=== PATIENT | female | born 1960 | race Caucasian/White ===

== ENCOUNTER 2018-09-24 19:17 | Emergency (ER) | payer MEDICARE, MEDICAID ==
[~2018-09-24] VITALS: Ht 165.1 cm; Wt 66.0 kg
[2018-09-24] MEDS ORDERED: AZITHROMYCIN 500 MG in DEXT 5% WATER 250 ML IV SCH (22:00)
[2018-09-24] MEDS ORDERED: METHYLPREDNISOLONE SOD SUCC 125 MG/2 ML VIAL IV ONE (22:00)
[2018-09-24] MEDS ORDERED: BUDESONIDE 0.5MG/2ML NEB HHN ONE (22:00)
[2018-09-24] MEDS ORDERED: ALBUTEROL (0.083%) 2.5MG/3ML NEB HHN ONE (22:00)
[2018-09-24] MEDS ORDERED: IPRATROPIUM BROMIDE (0.02%) 0.5MG/2.5ML NEB HHN ONE (22:00)
[2018-09-24 22:19] LABS: BASOPHILS % 0.4 % (0.0-2.0); EOSINOPHILS % 0.1 % (0.0-5.0); HEMOGLOBIN. 13.7 g/dL (12.0-16.0); LYMPHOCYTES % 8.3 % (20.0-50.0); MEAN CORPUSCULAR HEMOGLOBIN 33.8 pg (28.0-32.0); MEAN CORPUSCULAR VOLUME 103.5 fL (81.0-99.0); MEAN PLATELET VOLUME 7.2 fl (7.4-10.4); MONOCYTES % 2.4 % (2.0-8.0); NEUTROPHILS % 88.8 % (40.0-76.0); PLATELET 358 x1000/uL (130-400); RED BLOOD CELL COUNT 4.06 mill/uL (4.2-5.4); RED CELL DISTRIBUTION WIDTH 14.8 % (11.6-14.6)
[2018-09-24 22:21] LABS: CHLORIDE 101 mEq/L (98-107)
[2018-09-25] MEDS ORDERED: ALBUTEROL (0.083%) 2.5MG/3ML NEB HHN ONE (01:30)
[2018-09-25 04:30] VITALS: BP 100/54
== END 2018-09-25 05:46 | disposition home or self-care (01) ==
LOC: ER 19:17
DX: J44.1 Chronic obstructive pulmonary disease with (acute) exacerbation (principal)
CPT/HCPCS: 36415; 71045; 80053; 83605; 83880; 84484; 85025; 93005; 94640; 96365; 96375; 99284; J0456; J2930; J7060; J7611; J7626

== ENCOUNTER 2020-09-18 01:27 | Emergency (ER) | payer MEDICARE, MEDICAID ==
[~2020-09-18] VITALS: Ht 157.5 cm; Wt 59.0 kg
[~2020-09-18 01:27] MED LIST: ASPI-1497 PO; LISI40TA13 PO; METO-411 PO; MONT10TA21 PO
[2020-09-18] MEDS ORDERED: ASPIRIN 81MG TABLET PO ONE (02:00)
[2020-09-18 02:16] LABS: BASOPHILS % 0.8 % (0.0-2.0); HEMATOCRIT. 41.4 % (36.0-48.0); HEMOGLOBIN. 13.8 g/dL (12.0-16.0); MEAN CORPUSCULAR HEMOGLOBIN 33.2 pg (28.0-32.0); MEAN CORPUSCULAR VOLUME 99.4 fL (81.0-99.0); MEAN PLATELET VOLUME 6.9 fl (7.4-10.4); MONOCYTES % 6.1 % (2.0-8.0); NEUTROPHILS % 58.1 % (40.0-76.0); PLATELET 242 x1000/uL (130-400); RED BLOOD CELL COUNT 4.16 mill/uL (4.2-5.4); RED CELL DISTRIBUTION WIDTH 14.3 % (11.6-14.6)
[2020-09-18 02:20] LABS: CHLORIDE 104 mEq/L (98-107)
[2020-09-18 03:55] VITALS: BP 129/78
== END 2020-09-18 04:50 | disposition home or self-care (01) ==
LOC: ER 01:27
DX: R07.89 Other chest pain (principal); F41.9 Anxiety disorder, unspecified; F43.0 Acute stress reaction; F17.200 Nicotine dependence, unspecified, uncomplicated; J44.1 Chronic obstructive pulmonary disease with (acute) exacerbation; I10 Essential (primary) hypertension; Z86.73 Personal history of transient ischemic attack (TIA), and cerebral infarction without residual deficits; Z59.0 Homelessness
CPT/HCPCS: 36415; 71045; 80053; 83880; 84484; 85025; 93005; 99283; 99284

== ENCOUNTER 2022-02-05 19:54 | Inpatient (IN) | payer MEDICARE, MEDICAID ==
[~2022-02-05] VITALS: Ht 152.4 cm; Wt 83.9 kg
[~2022-02-05 19:54] MED LIST changes: +LEVO500T90 MT; +MED4 MT; +METH10OR PO; +PRAV40TA58 MT; +TEMA30CA MT
[2022-02-05] MEDS ORDERED: ASPIRIN 325MG EC TABLET PO ONE (21:45)
[2022-02-05] MEDS ORDERED: ALBUTEROL (0.083%) 2.5MG/3ML NEB HHN ONE (21:45)
[2022-02-05 23:45] LABS: BASOPHILS % 0.7 % (0.0-2.0); EOSINOPHILS % 0.5 % (0.0-5.0); HEMATOCRIT. 47.7 % (36.0-48.0); HEMOGLOBIN. 15.4 g/dL (12.0-16.0); LYMPHOCYTES % 20.4 % (20.0-50.0); MEAN CORPUSCULAR HEMOGLOBIN 33.2 pg (28.0-32.0); MEAN CORPUSCULAR VOLUME 102.5 fL (81.0-99.0); MEAN PLATELET VOLUME 7.2 fl (7.4-10.4); MONOCYTES % 6.2 % (2.0-8.0); NEUTROPHILS % 72.2 % (40.0-76.0); PLATELET 190 x1000/uL (130-400); RED BLOOD CELL COUNT 4.65 mill/uL (4.2-5.4); RED CELL DISTRIBUTION WIDTH 16.4 % (11.6-14.6)
[2022-02-05 23:51] LABS: CHLORIDE 98 mEq/L (98-107)
[2022-02-06] LABS: INR 1.1; PROTHROMBIN TIME 11.4 sec (9.6-11.0)
[2022-02-06] MEDS ORDERED: ENOXAPARIN 80MG/0.8ML SYR SUBCUT NR (00:30)
[2022-02-06] MEDS ORDERED: CEFTRIAXONE 1 G PREMIX 50 ML IV ONE (01:00)
[2022-02-06] MEDS: AZITHROMYCIN 500 MG in DEXT 5% WATER 250 ML IV SCH (01:51)
[2022-02-06] MEDS ORDERED: ACETAMINOPHEN 325MG TABLET PO PRN (16:15)
[2022-02-06] MEDS ORDERED: IPRATROPIUM/ALBUTEROL 0.5-3(2.5)MG/3ML NEB HHN SCH (16:15)
[2022-02-06] MEDS ORDERED: LORAZEPAM 0.5MG TABLET PO PRN (16:15)
[2022-02-06] MEDS ORDERED: ONDANSETRON HCL 4MG/2ML INJ IV PRN (16:15)
[2022-02-06] MEDS ORDERED: METOPROLOL TARTRATE 50MG TABLET PO NR (16:15)
[2022-02-06] MEDS: ASPIRIN 81MG EC TABLET PO SCH (16:45)
[2022-02-06] MEDS: ENOXAPARIN 40MG/0.4ML SYR SUBCUT SCH (17:00)
[2022-02-06 19:03] VITALS: BP 118/61
[2022-02-06 20:00] VITALS: BP 116/66
[2022-02-06] MEDS ORDERED: ATORVASTATIN CALCIUM 40MG TABLET PO SCH (21:00)
[2022-02-06] MEDS ORDERED: SODIUM CHLORIDE 0.9% 1,000 ML IV SCH (22:45)
[2022-02-06] MEDS ORDERED: ZOLPIDEM TARTRATE 5MG TABLET PO PRN (22:45)
[2022-02-07 01:56] LABS: CREATINE KINASE 21 IU/L (26-192); CREATINE KINASE MB FRACTION < 1.0 ng/mL (0.5-3.6)
[2022-02-07] MEDS: AZITHROMYCIN 500 MG in DEXT 5% WATER 250 ML IV SCH (02:25)
[2022-02-07 06:02] LABS: BASOPHILS % 0.3 % (0.0-2.0); EOSINOPHILS % 0.8 % (0.0-5.0); HEMATOCRIT. 46.7 % (36.0-48.0); HEMOGLOBIN. 15.2 g/dL (12.0-16.0); LYMPHOCYTES % 22.6 % (20.0-50.0); MEAN CORPUSCULAR HEMOGLOBIN 32.9 pg (28.0-32.0); MEAN CORPUSCULAR VOLUME 101.1 fL (81.0-99.0); MEAN PLATELET VOLUME 7.5 fl (7.4-10.4); MONOCYTES % 8.3 % (2.0-8.0); PLATELET 210 x1000/uL (130-400); RED BLOOD CELL COUNT 4.62 mill/uL (4.2-5.4); RED CELL DISTRIBUTION WIDTH 16.2 % (11.6-14.6)
[2022-02-07 06:56] LABS: CHLORIDE 97 mEq/L (98-107)
[2022-02-07 07:18] LABS: CREATINE KINASE 17 IU/L (26-192); CREATINE KINASE MB FRACTION < 1.0 ng/mL (0.5-3.6)
[2022-02-07 08:03] VITALS: BP 103/67
[2022-02-07] MEDS: ASPIRIN 81MG EC TABLET PO SCH (08:05)
[2022-02-07] MEDS ORDERED: MONTELUKAST SODIUM 10MG TABLET PO SCH (09:00)
[2022-02-07] MEDS ORDERED: LISINOPRIL 40MG TABLET PO SCH (09:00)
[2022-02-07] MEDS ORDERED: REGADENOSON 0.4 MG/5 ML IV SCH (09:15)
[2022-02-07 12:00] VITALS: BP 128/83
[2022-02-07 16:00] VITALS: BP 112/71
[2022-02-07] MEDS: ENOXAPARIN 40MG/0.4ML SYR SUBCUT SCH (16:24)
== END 2022-02-07 19:43 | disposition home or self-care (01) | DRG 206 ==
LOC: ER 19:54 → 8WST 02-06 00:27
PROVIDERS: ADMIT Internal Medicine; ATTEND Internal Medicine
PROC: 4A02XM4 Measurement of Cardiac Total Activity, External Approach (ICD-10-PCS; principal; 2022-02-07)
PROC: 3E033HZ Introduction of Radioactive Substance into Peripheral Vein, Percutaneous Approach (ICD-10-PCS; 2022-02-07)
DX: M94.0 Chondrocostal junction syndrome [Tietze] (principal); J96.10 Chronic respiratory failure, unspecified whether with hypoxia or hypercapnia; F11.90 Opioid use, unspecified, uncomplicated; J44.9 Chronic obstructive pulmonary disease, unspecified; E78.5 Hyperlipidemia, unspecified; I10 Essential (primary) hypertension; F17.200 Nicotine dependence, unspecified, uncomplicated; Z20.822 Contact with and (suspected) exposure to COVID-19; Z79.899 Other long term (current) drug therapy; Z82.49 Family history of ischemic heart disease and other diseases of the circulatory system; Z83.3 Family history of diabetes mellitus; I51.89 Other ill-defined heart diseases
CPT/HCPCS: 36415; 71045; 78452; 80048; 80053; 82550; 82553; 84484; 85025; 86850; 86900; 87426; 93005; 93017; 94640; 96365; 96368; 96372; 99284; A9500; C9803; J0456; J0696; J1650; J2785; J7030; J7060

== ENCOUNTER 2022-02-27 11:39 | Emergency (ER) | payer MEDICAID, MEDICARE ==
[~2022-02-27] VITALS: Ht 157.5 cm; Wt 96.0 kg
[2022-02-27 15:32] LABS: BASOPHILS % 0.4 % (0.0-2.0); EOSINOPHILS % 0.2 % (0.0-5.0); HEMOGLOBIN. 15.4 g/dL (12.0-16.0); MEAN CORPUSCULAR HEMOGLOBIN 32.8 pg (28.0-32.0); MEAN CORPUSCULAR VOLUME 102.6 fL (81.0-99.0); MEAN PLATELET VOLUME 7.6 fl (7.4-10.4); MONOCYTES % 7.2 % (2.0-8.0); NEUTROPHILS % 69.2 % (40.0-76.0); PLATELET 178 x1000/uL (130-400); RED BLOOD CELL COUNT 4.68 mill/uL (4.2-5.4)
[2022-02-27 15:57] LABS: CHLORIDE 104 mEq/L (98-107)
[2022-02-27 21:38] VITALS: BP 125/75
== END 2022-02-27 19:50 | disposition home or self-care (01) ==
LOC: ER 11:39
DX: R20.0 Anesthesia of skin (principal); J45.909 Unspecified asthma, uncomplicated; J44.9 Chronic obstructive pulmonary disease, unspecified; F17.210 Nicotine dependence, cigarettes, uncomplicated
CPT/HCPCS: 36415; 72148; 80048; 83735; 85025; 99284

== ENCOUNTER 2022-03-14 18:41 | Inpatient (IN) | payer MEDICARE, MEDICAID ==
[~2022-03-14] VITALS: Ht 152.4 cm; Wt 93.1 kg
[2022-03-14] MEDS ORDERED: MORPHINE SULFATE 4 MG/ML CPJ (NOT FOR IM USE) IV ONE (19:15)
[2022-03-14 19:35] LABS: HEMATOCRIT. 48.7 % (36.0-48.0); HEMOGLOBIN. 15.6 g/dL (12.0-16.0); MEAN CORPUSCULAR HEMOGLOBIN 32.6 pg (28.0-32.0); MEAN CORPUSCULAR VOLUME 101.6 fL (81.0-99.0); MEAN PLATELET VOLUME 7.1 fl (7.4-10.4); PLATELET 244 x1000/uL (130-400); RED BLOOD CELL COUNT 4.79 mill/uL (4.2-5.4); RED CELL DISTRIBUTION WIDTH 16.9 % (11.6-14.6)
[2022-03-14 19:41] LABS: CHLORIDE 101 mEq/L (98-107)
[2022-03-14 20:25] LABS: PLATELET ESTIMATE NORMAL
[2022-03-14] MEDS ORDERED: ACETAMINOPHEN 325MG TABLET PO ONE (21:00)
[2022-03-14] MEDS ORDERED: CEFTRIAXONE 1 G PREMIX 50 ML IV ONE (21:00)
[2022-03-14] MEDS ORDERED: MORPHINE SULFATE 4 MG/ML CPJ (NOT FOR IM USE) IV NR (21:15)
[2022-03-14] MEDS ORDERED: LISINOPRIL 5MG TABLET PO NR (22:00)
[2022-03-14] MEDS ORDERED: ASPIRIN 81MG TABLET PO NR (22:00)
[2022-03-14] MEDS ORDERED: METOPROLOL TARTRATE 25MG TABLET PO NR (22:00)
[2022-03-14] MEDS ORDERED: NITROGLYCERIN 0.4MG TABLET SL SL NR (22:45)
[2022-03-14] MEDS ORDERED: ISOSORBIDE DINITRATE 10MG TABLET PO SCH (23:00)
[2022-03-14 23:58] LABS: CLARITY URINE CLOUDY (CLEAR); COLOR URINE YELLOW (YELLOW); KETONES URINE NEGATIVE (NEGATIVE); LEUKOCYTE ESTERASE URINE NEGATIVE (NEGATIVE); NITRITE URINE NEGATIVE (NEGATIVE); OCCULT BLOOD URINE NEGATIVE (NEGATIVE); PH URINE 5.5 (4.5-8.0); PROTEIN URINE 1+ (NEGATIVE); SPECIFIC GRAVITY URINE 1.028 (1.005-1.030)
[2022-03-15 00:06] LABS: INR 1.1; PARTIAL THROMBOPLASTIN TIME 26.3 sec (23.4-31.0); PROTHROMBIN TIME 11.3 sec (9.6-11.0)
[2022-03-15] MEDS ORDERED: HEPARIN 60 UNITS/KG BOLUS IV NR (01:00)
[2022-03-15] MEDS: HEPARIN 25,000 UNITS PREMIX 250 ML IV SCH ×2 (01:44→18:43)
[2022-03-15] MEDS ORDERED: FUROSEMIDE 40MG/4ML VIAL IVP NR (07:15)
[2022-03-15] MEDS ORDERED: HEPARIN BOLUS PRN aPTT <30 IV (07:30)
[2022-03-15] MEDS ORDERED: HEPARIN BOLUS PRN aPTT 30-44 IV (07:30)
[2022-03-15 08:50] VITALS: BP 147/77
[2022-03-15] MEDS: METOPROLOL TARTRATE 25MG TABLET PO SCH ×2 (09:42→20:36)
[2022-03-15] MEDS: LISINOPRIL 10MG TABLET PO SCH (09:42)
[2022-03-15] MEDS: ASPIRIN 81MG TABLET PO SCH (09:42)
[2022-03-15] MEDS: ISOSORBIDE DINITRATE 20MG TABLET PO SCH ×2 (09:42→17:00)
[2022-03-15] MEDS ORDERED: HYDRALAZINE 20MG/ML VIAL IV PRN (10:45)
[2022-03-15] MEDS ORDERED: ACETAMINOPHEN 325MG TABLET PO PRN (11:45)
[2022-03-15] MEDS ORDERED: ONDANSETRON HCL 4MG/2ML INJ IV PRN (11:45)
[2022-03-15 12:00] VITALS: BP 129/76
[2022-03-15] MEDS ORDERED: IPRATROPIUM/ALBUTEROL 0.5-3(2.5)MG/3ML NEB HHN SCH (12:00)
[2022-03-15] MEDS: LEVOFLOXACIN 500MG PREMIX 100 ML IV SCH (14:02)
[2022-03-15 16:00] VITALS: BP 104/54
[2022-03-15 16:25] LABS: CREATINE KINASE 186 IU/L (26-192)
[2022-03-15] MEDS ORDERED: *PATIENT'S OWN MEDICATION STORAGE XX SCH (18:15)
[2022-03-15] MEDS: IPRATROPIUM/ALBUTEROL 0.5-3(2.5)MG/3ML NEB HHN SCH ×2 (18:17→21:38)
[2022-03-15] MEDS: FUROSEMIDE 40MG/4ML VIAL IVP SCH (18:20)
[2022-03-15 20:00] VITALS: BP 101/68
[2022-03-15] MEDS ORDERED: IBUP-2030 PO (20:00)
[2022-03-15] MEDS ORDERED: GABA-529 PO (20:00)
[2022-03-15] MEDS ORDERED: IPRA4AER INH (20:00)
[2022-03-15] MEDS ORDERED: FLUT1AER4 IH (20:00)
[2022-03-15] MEDS ORDERED: ALBU6.7H15 INH (20:00)
[2022-03-15] MEDS ORDERED: CYCL10TA21 PO (20:00)
[2022-03-15] MEDS: METHADONE HCL PO SCH (20:38)
[2022-03-15] MEDS: ATORVASTATIN CALCIUM 40MG TABLET PO SCH (20:44)
[2022-03-15] MEDS ORDERED: ATORVASTATIN CALCIUM 40MG TABLET PO SCH (21:00)
[2022-03-15] MEDS: BUDESONIDE 0.5MG/2ML NEB HHN SCH (21:38)
[2022-03-15 23:30] LABS: CREATINE KINASE 116 IU/L (26-192)
[2022-03-16] VITALS: BP 134/71
[2022-03-16] MEDS: IPRATROPIUM/ALBUTEROL 0.5-3(2.5)MG/3ML NEB HHN SCH ×4 (01:54→21:50)
[2022-03-16 04:00] VITALS: BP 131/76
[2022-03-16] MEDS ORDERED: NON FORMULARY PATIENT HOME MED PO SCH (07:00)
[2022-03-16] MEDS: BUDESONIDE 0.5MG/2ML NEB HHN SCH ×2 (07:32→21:50)
[2022-03-16 07:33] LABS: BASOPHILS % 0.3 % (0.0-2.0); EOSINOPHILS % 0.2 % (0.0-5.0); HEMATOCRIT. 45.5 % (36.0-48.0); HEMOGLOBIN. 14.7 g/dL (12.0-16.0); LYMPHOCYTES % 11.7 % (20.0-50.0); MEAN CORPUSCULAR HEMOGLOBIN 32.9 pg (28.0-32.0); MEAN CORPUSCULAR VOLUME 101.4 fL (81.0-99.0); MEAN PLATELET VOLUME 7.7 fl (7.4-10.4); MONOCYTES % 6.2 % (2.0-8.0); NEUTROPHILS % 81.6 % (40.0-76.0); PLATELET 239 x1000/uL (130-400); RED BLOOD CELL COUNT 4.48 mill/uL (4.2-5.4); RED CELL DISTRIBUTION WIDTH 16.3 % (11.6-14.6)
[2022-03-16 08:00] VITALS: BP 147/77
[2022-03-16] MEDS: HEPARIN 25,000 UNITS PREMIX 250 ML IV SCH ×4 (08:36→23:29)
[2022-03-16 08:41] LABS: CHLORIDE 95 mEq/L (98-107)
[2022-03-16 08:46] LABS: INR 1.1; PROTHROMBIN TIME 11.8 sec (9.6-11.0)
[2022-03-16] MEDS: METHADONE HCL PO SCH (08:52)
[2022-03-16 08:56] LABS: PARTIAL THROMBOPLASTIN TIME 27.6 sec (23.4-31.0)
[2022-03-16] MEDS: METOPROLOL TARTRATE 25MG TABLET PO SCH ×2 (09:00→20:35)
[2022-03-16] MEDS: ASPIRIN 81MG TABLET PO SCH (09:00)
[2022-03-16] MEDS: LISINOPRIL 10MG TABLET PO SCH (09:00)
[2022-03-16] MEDS: FUROSEMIDE 40MG/4ML VIAL IVP SCH ×2 (09:00→16:15)
[2022-03-16] MEDS: ISOSORBIDE DINITRATE 20MG TABLET PO SCH ×2 (09:19→16:17)
[2022-03-16] MEDS ORDERED: POTASSIUM CHLORIDE 20MEQ TABLET SR PO NR (10:50)
[2022-03-16 12:00] VITALS: BP 115/79
[2022-03-16] MEDS: LEVOFLOXACIN 500MG PREMIX 100 ML IV SCH (13:09)
[2022-03-16 16:01] VITALS: BP 133/82
[2022-03-16] MEDS: TEMAZEPAM 15MG CAPSULE PO PRN (20:39)
[2022-03-16] MEDS: ATORVASTATIN CALCIUM 40MG TABLET PO SCH (21:00)
[2022-03-16 22:55] VITALS: BP 124/59
[2022-03-17] VITALS (12 sets, daily range): BP systolic 95–140; BP diastolic 43–90
[2022-03-17] MEDS: IPRATROPIUM/ALBUTEROL 0.5-3(2.5)MG/3ML NEB HHN SCH ×4 (01:00→21:19)
[2022-03-17 07:15] LABS: BASOPHILS % 0.9 % (0.0-2.0); EOSINOPHILS % 1.3 % (0.0-5.0); HEMATOCRIT. 47.5 % (36.0-48.0); HEMOGLOBIN. 15.7 g/dL (12.0-16.0); LYMPHOCYTES % 20.4 % (20.0-50.0); MEAN CORPUSCULAR HEMOGLOBIN 33.1 pg (28.0-32.0); MEAN PLATELET VOLUME 7.3 fl (7.4-10.4); MONOCYTES % 6.6 % (2.0-8.0); NEUTROPHILS % 70.8 % (40.0-76.0); PLATELET 287 x1000/uL (130-400); RED BLOOD CELL COUNT 4.75 mill/uL (4.2-5.4)
[2022-03-17] MEDS ORDERED: NITROGLYCERIN 50MCG/ML 10ML VIAL (CATH LAB) IV ONE (08:00)
[2022-03-17] MEDS ORDERED: NICARDIPINE 100MCG/ML 10ML VIAL (CATH LAB) IV ONE (08:00)
[2022-03-17 08:01] LABS: CHLORIDE 92 mEq/L (98-107)
[2022-03-17] MEDS: BUDESONIDE 0.5MG/2ML NEB HHN SCH ×2 (08:13→21:19)
[2022-03-17] MEDS: FUROSEMIDE 40MG/4ML VIAL IVP SCH (08:22)
[2022-03-17] MEDS: ASPIRIN 81MG TABLET PO SCH (09:00)
[2022-03-17] MEDS: LISINOPRIL 10MG TABLET PO SCH (09:00)
[2022-03-17] MEDS: ISOSORBIDE DINITRATE 20MG TABLET PO SCH ×2 (09:00→18:07)
[2022-03-17] MEDS: METOPROLOL TARTRATE 25MG TABLET PO SCH ×2 (09:00→20:40)
[2022-03-17] MEDS ORDERED: IODIXANOL 320MG/ML 100 ML BOTTLE IV ONE ×3 (09:28→12:08)
[2022-03-17] MEDS ORDERED: LIDOCAINE HCL/PF 1% 10 MG/ML 5ML VIAL ONE ×2 (09:50→10:27)
[2022-03-17] MEDS ORDERED: MIDAZOLAM HCL 2 MG/2 ML VIAL ONE ×2 (09:51→11:45)
[2022-03-17] MEDS ORDERED: FENTANYL CITRATE/PF 50MCG/ML 2ML VIAL ONE ×2 (09:51→11:45)
[2022-03-17] MEDS ORDERED: HEPARIN 1000 UNITS/ML 10ML ONE (10:23)
[2022-03-17] MEDS ORDERED: HEPARIN SODIUM 1,000 UNIT/1ML VIAL IV ONE ×2 (11:05→12:12)
[2022-03-17] MEDS ORDERED: TICAGRELOR 90 MG TABLET PO NR (12:30)
[2022-03-17] MEDS ORDERED: ASPIRIN 325MG TABLET ONE (12:32)
[2022-03-17] MEDS ORDERED: ACETAMINOPHEN 325MG TABLET PO PRN (12:45)
[2022-03-17] MEDS ORDERED: MORPHINE SULFATE 2 MG/ML CPJ (NOT FOR IM USE) IV PRN ×2 (12:45)
[2022-03-17] MEDS ORDERED: ONDANSETRON HCL 4MG/2ML INJ IV PRN (12:45)
[2022-03-17] MEDS ORDERED: NITROGLYCERIN 50MG PREMIX 250 ML IV PRN (12:45)
[2022-03-17] MEDS ORDERED: ATROPINE SULFATE 1MG/10ML SYR IV PRN (12:45)
[2022-03-17] MEDS ORDERED: NALOXONE HCL 0.4MG/ML VIAL IV PRN (13:00)
[2022-03-17] MEDS: METHADONE HCL PO SCH (14:58)
[2022-03-17] MEDS: LEVOFLOXACIN 500MG PREMIX 100 ML IV SCH (14:58)
[2022-03-17] MEDS: POTASSIUM CHLORIDE 20MEQ TABLET SR PO SCH (18:06)
[2022-03-17] MEDS: ATORVASTATIN CALCIUM 40MG TABLET PO SCH (20:40)
[2022-03-17] MEDS: TEMAZEPAM 15MG CAPSULE PO PRN (23:56)
[2022-03-18] VITALS (18 sets, daily range): BP systolic 86–123; BP diastolic 29–79
[2022-03-18] MEDS: IPRATROPIUM/ALBUTEROL 0.5-3(2.5)MG/3ML NEB HHN SCH ×3 (01:23→14:19)
[2022-03-18 06:18] LABS: BASOPHILS % 0.4 % (0.0-2.0); HEMATOCRIT. 48.5 % (36.0-48.0); HEMOGLOBIN. 15.7 g/dL (12.0-16.0); LYMPHOCYTES % 16.3 % (20.0-50.0); MEAN CORPUSCULAR HEMOGLOBIN 32.9 pg (28.0-32.0); MEAN CORPUSCULAR VOLUME 101.5 fL (81.0-99.0); MONOCYTES % 7.6 % (2.0-8.0); NEUTROPHILS % 73.7 % (40.0-76.0); PLATELET 289 x1000/uL (130-400); RED BLOOD CELL COUNT 4.78 mill/uL (4.2-5.4); RED CELL DISTRIBUTION WIDTH 16.9 % (11.6-14.6)
[2022-03-18 06:50] LABS: CHLORIDE 96 mEq/L (98-107)
[2022-03-18] MEDS: BUDESONIDE 0.5MG/2ML NEB HHN SCH (07:50)
[2022-03-18] MEDS: ASPIRIN 81MG TABLET PO SCH (08:14)
[2022-03-18] MEDS: METHADONE HCL PO SCH (08:14)
[2022-03-18] MEDS: LISINOPRIL 10MG TABLET PO SCH (08:15)
[2022-03-18] MEDS: POTASSIUM CHLORIDE 20MEQ TABLET SR PO SCH ×2 (08:15→17:18)
[2022-03-18] MEDS: METOPROLOL TARTRATE 25MG TABLET PO SCH (08:16)
[2022-03-18] MEDS: ISOSORBIDE DINITRATE 20MG TABLET PO SCH ×2 (08:16→17:22)
[2022-03-18] MEDS ORDERED: CLOPIDOGREL 75MG TABLET PO SCH (09:00)
[2022-03-18] MEDS ORDERED: FUROSEMIDE 40MG/4ML VIAL IVP SCH (09:00)
[2022-03-18] MEDS ORDERED: LIDOCAINE 5% PATCH TOP SCH (13:00)
[2022-03-18] MEDS: LEVOFLOXACIN 500MG PREMIX 100 ML IV SCH (13:25)
[2022-03-18] MEDS ORDERED: ISOS20TA8 PO (15:48)
[2022-03-18] MEDS ORDERED: LISI10TA26 PO (15:48)
[2022-03-18] MEDS ORDERED: METO25TA6 PO (15:48)
[2022-03-18] MEDS ORDERED: HYDR25TA MT (15:48)
[2022-03-18] MEDS ORDERED: P20 MT (15:48)
[2022-03-18] MEDS ORDERED: LIP40 PO (15:48)
[2022-03-18] MEDS ORDERED: CLOP75TA15 PO (15:48)
== END 2022-03-18 19:06 | disposition home health service (06) | DRG 246 ==
LOC: ER 18:41 → MICUSO 23:46 → 8WST 03-15 10:11 → 3WST 03-17 13:39
PROVIDERS: ADMIT Internal Medicine; ATTEND Internal Medicine
PROC: 027034Z Dilation of Coronary Artery, One Artery with Drug-eluting Intraluminal Device, Percutaneous Approach (ICD-10-PCS; principal; 2022-03-17)
PROC: 02C03Z7 Extirpation of Matter from Coronary Artery, One Artery, Orbital Atherectomy Technique, Percutaneous Approach (ICD-10-PCS; 2022-03-17)
PROC: B241ZZ3 Ultrasonography of Multiple Coronary Arteries, Intravascular (ICD-10-PCS; 2022-03-17)
PROC: B211YZZ Fluoroscopy of Multiple Coronary Arteries using Other Contrast (ICD-10-PCS; 2022-03-17)
PROC: B215YZZ Fluoroscopy of Left Heart using Other Contrast (ICD-10-PCS; 2022-03-17)
DX: I21.4 Non-ST elevation (NSTEMI) myocardial infarction (principal); J96.20 Acute and chronic respiratory failure, unspecified whether with hypoxia or hypercapnia; J44.1 Chronic obstructive pulmonary disease with (acute) exacerbation; E44.1 Mild protein-calorie malnutrition; Z68.41 Body mass index [BMI] 40.0-44.9, adult; I11.0 Hypertensive heart disease with heart failure; I50.9 Heart failure, unspecified; E66.9 Obesity, unspecified; D72.829 Elevated white blood cell count, unspecified; E78.5 Hyperlipidemia, unspecified; F11.90 Opioid use, unspecified, uncomplicated; F17.200 Nicotine dependence, unspecified, uncomplicated; Z99.81 Dependence on supplemental oxygen
CPT/HCPCS: 36415; 71045; 76775; 80048; 80053; 81003; 82550; 83735; 83880; 84484; 85025; 86850; 86900; 87426; 92933; 92978; 93005; 93306; 93458; 94640; 94664; 99291; C1725; C1753; C1760; C1769; C1874; C1887; C1893; J0696; J1644; J1940; J1956; J2250; J2270; J3010; J3490; J7626; Q9967; J8499

== ENCOUNTER 2022-03-29 15:18 | Inpatient (IN) | payer MEDICARE, MEDICAID ==
[~2022-03-29] VITALS: Ht 152.4 cm; Wt 102.1 kg
[~2022-03-29 15:18] MED LIST changes: +ALBU6.7H15 INH; +CLOP75TA15 PO; +CYCL10TA21 PO; +FLUT1AER4 IH; +GABA-529 PO; +HYDR25TA MT; +IPRA4AER INH; +ISOS20TA8 PO; -LEVO500T90 MT; +LIP40 PO; +LISI10TA26 PO; -MED4 MT; +METO25TA6 PO; +P20 MT; -TEMA30CA MT
[2022-03-29] MEDS ORDERED: SODIUM CHLORIDE 0.9% 1,000 ML IV ONE ×3 (16:30→19:15)
[2022-03-29 17:16] LABS: HEMATOCRIT. 43.1 % (36.0-48.0); HEMOGLOBIN. 14.4 g/dL (12.0-16.0); MEAN CORPUSCULAR HEMOGLOBIN 33.4 pg (28.0-32.0); MEAN CORPUSCULAR VOLUME 99.6 fL (81.0-99.0); PLATELET 230 x1000/uL (130-400); RED BLOOD CELL COUNT 4.33 mill/uL (4.2-5.4); RED CELL DISTRIBUTION WIDTH 16.6 % (11.6-14.6)
[2022-03-29 17:41] LABS: CHLORIDE 91 mEq/L (98-107)
[2022-03-29 17:48] LABS: PLATELET ESTIMATE NORMAL
[2022-03-29 17:56] LABS: ETHANOL BLOOD < 10 mg/dL
[2022-03-29] MEDS ORDERED: ASPIRIN 325MG EC TABLET PO ONE (19:15)
[2022-03-29 23:48] VITALS: BP 101/62
[2022-03-30 00:08] VITALS: BP 101/62
[2022-03-30 01:18] LABS: CLARITY URINE CLEAR (CLEAR); COLOR URINE YELLOW (YELLOW); KETONES URINE NEGATIVE (NEGATIVE); LEUKOCYTE ESTERASE URINE NEGATIVE (NEGATIVE); NITRITE URINE NEGATIVE (NEGATIVE); OCCULT BLOOD URINE NEGATIVE (NEGATIVE); PROTEIN URINE NEGATIVE (NEGATIVE); SPECIFIC GRAVITY URINE 1.013 (1.005-1.030); UROBILINOGEN URINE 0.2 E.U./dL (0.2-1.0)
[2022-03-30 01:33] LABS: *AMPHETAMINES SCREEN URINE NEGATIVE (NEGATIVE); *BARBITURATES SCREEN URINE NEGATIVE (NEGATIVE); *BENZODIAZEPINES SCREEN URINE PRESUMTIVE POSITIVE (NEGATIVE); *COCAINE SCREEN URINE NEGATIVE (NEGATIVE); CANNABINOID URINE SCREEN NEGATIVE (NEGATIVE); OPIATES URINE SCREEN NEGATIVE (NEGATIVE); PHENCYCLIDINE URINE SCREEN NEGATIVE (NEGATIVE)
[2022-03-30 01:34] LABS: METHADONE URINE SCREEN PRESUMTIVE POSITIVE (NEGATIVE)
[2022-03-30 04:00] VITALS: BP 102/54
[2022-03-30 08:00] VITALS: BP 105/40
[2022-03-30] MEDS ORDERED: CYCLOBENZAPRINE 10MG TABLET PO SCH (09:00)
[2022-03-30] MEDS: ISOSORBIDE DINITRATE 20MG TABLET PO SCH ×2 (09:00→16:24)
[2022-03-30] MEDS: METOPROLOL TARTRATE 25MG TABLET PO SCH ×2 (09:00→20:14)
[2022-03-30] MEDS: LISINOPRIL 40MG TABLET PO SCH (09:00)
[2022-03-30] MEDS: HYDROCHLOROTHIAZIDE 25MG TABLET PO SCH (09:00)
[2022-03-30] MEDS: ASPIRIN 81MG EC TABLET PO SCH (09:02)
[2022-03-30] MEDS: CLOPIDOGREL 75MG TABLET PO SCH (09:02)
[2022-03-30] MEDS: PREDNISONE 20MG TABLET PO SCH ×2 (09:02→17:35)
[2022-03-30] MEDS: MONTELUKAST SODIUM 10MG TABLET PO SCH (09:02)
[2022-03-30] MEDS: ENOXAPARIN 40MG/0.4ML SYR SUBCUT SCH ×2 (09:03→21:10)
[2022-03-30] MEDS: GABAPENTIN 100MG CAPSULE PO SCH (09:07)
[2022-03-30] MEDS: IPRATROPIUM/ALBUTEROL 0.5-3(2.5)MG/3ML NEB HHN SCH ×3 (11:05→20:55)
[2022-03-30] MEDS ORDERED: NON FORMULARY PATIENT HOME MED XX SCH (11:30)
[2022-03-30 12:00] VITALS: BP 120/55
[2022-03-30] MEDS: METHADONE PO SCH (12:48)
[2022-03-30 16:00] VITALS: BP 107/60
[2022-03-30 17:46] LABS: BG BASE EXCESS 9.5 mmol/L (-2.0-2.0); BG CARBOXYHEMOGLOBIN 1.3 % (0.5-1.5); BG FRACTION INSPIRED OXYGEN 28; BG HCO3 ACT 39.9 mmol/L (22.0-26.0); BG METHEMOGLOBIN 0.4 % (0.0-1.5); BG OXYGEN SATURATION 90.8 % (92.0-98.5); BG OXYHEMOGLOBIN 89.3 % (94.0-97.0); BG PCO2 83.9 mmHg (35.0-45.0); BG PH 7.295 (7.350-7.450); BG PO2 60.4 mmHg (75.0-100.0); BG SAMPLE SITE RIGHT BRACHIAL; BG TOTAL HEMOGLOBIN 15.1 g/dL (12.0-18.0); BG VENT MODE NASAL CANNULA
[2022-03-30] MEDS: ATORVASTATIN CALCIUM 40MG TABLET PO SCH (21:10)
[2022-03-31] VITALS (7 sets, daily range): BP systolic 109–161; BP diastolic 58–91
[2022-03-31] MEDS: IPRATROPIUM/ALBUTEROL 0.5-3(2.5)MG/3ML NEB HHN SCH ×4 (02:38→20:59)
[2022-03-31 06:10] LABS: BASOPHILS % 0.1 % (0.0-2.0); EOSINOPHILS % 0.2 % (0.0-5.0); HEMATOCRIT. 43.6 % (36.0-48.0); HEMOGLOBIN. 14.4 g/dL (12.0-16.0); LYMPHOCYTES % 15.7 % (20.0-50.0); MEAN CORPUSCULAR HEMOGLOBIN 32.8 pg (28.0-32.0); MEAN CORPUSCULAR VOLUME 99.3 fL (81.0-99.0); MEAN PLATELET VOLUME 7.5 fl (7.4-10.4); MONOCYTES % 4.6 % (2.0-8.0); NEUTROPHILS % 79.4 % (40.0-76.0); PLATELET 213 x1000/uL (130-400); RED BLOOD CELL COUNT 4.39 mill/uL (4.2-5.4); RED CELL DISTRIBUTION WIDTH 16.6 % (11.6-14.6)
[2022-03-31 06:27] LABS: CHLORIDE 93 mEq/L (98-107)
[2022-03-31] MEDS: HYDROCHLOROTHIAZIDE 25MG TABLET PO SCH (09:00)
[2022-03-31] MEDS: LISINOPRIL 40MG TABLET PO SCH (09:00)
[2022-03-31] MEDS: ISOSORBIDE DINITRATE 20MG TABLET PO SCH ×2 (09:00→17:00)
[2022-03-31] MEDS: GABAPENTIN 100MG CAPSULE PO SCH (09:51)
[2022-03-31] MEDS: PREDNISONE 20MG TABLET PO SCH ×3 (09:51→18:55)
[2022-03-31] MEDS: METOPROLOL TARTRATE 25MG TABLET PO SCH ×2 (09:51→21:49)
[2022-03-31] MEDS: CLOPIDOGREL 75MG TABLET PO SCH (09:51)
[2022-03-31] MEDS: MONTELUKAST SODIUM 10MG TABLET PO SCH (09:51)
[2022-03-31] MEDS: ASPIRIN 81MG EC TABLET PO SCH (09:51)
[2022-03-31] MEDS: ENOXAPARIN 40MG/0.4ML SYR SUBCUT SCH ×2 (09:53→21:48)
[2022-03-31] MEDS: METHADONE PO SCH (10:35)
[2022-03-31 11:34] LABS: BG BASE EXCESS 10.4 mmol/L (-2.0-2.0); BG CARBOXYHEMOGLOBIN 1.2 % (0.5-1.5); BG DEOXYHEMOGLOBIN 4.3 % (0.0-5.0); BG FRACTION INSPIRED OXYGEN 28; BG HCO3 ACT 38.6 mmol/L (22.0-26.0); BG METHEMOGLOBIN 0.3 % (0.0-1.5); BG OXYGEN SATURATION 95.6 % (92.0-98.5); BG OXYHEMOGLOBIN 94.2 % (94.0-97.0); BG PCO2 66.4 mmHg (35.0-45.0); BG PH 7.382 (7.350-7.450); BG PO2 76.7 mmHg (75.0-100.0); BG SAMPLE SITE RIGHT RADIAL; BG TOTAL HEMOGLOBIN 15.1 g/dL (12.0-18.0); BG VENT MODE NASAL CANNULA
[2022-03-31] MEDS: ATORVASTATIN CALCIUM 40MG TABLET PO SCH (21:48)
[2022-03-31] MEDS ORDERED: METHADONE XX SCH (23:15)
[2022-04-01] VITALS: BP 142/82
[2022-04-01 04:00] VITALS: BP 128/72
[2022-04-01] MEDS: IPRATROPIUM/ALBUTEROL 0.5-3(2.5)MG/3ML NEB HHN SCH ×3 (07:41→14:50)
[2022-04-01 08:00] VITALS: BP 144/84
[2022-04-01] MEDS: CLOPIDOGREL 75MG TABLET PO SCH (08:30)
[2022-04-01] MEDS: ENOXAPARIN 40MG/0.4ML SYR SUBCUT SCH (08:30)
[2022-04-01] MEDS: PREDNISONE 20MG TABLET PO SCH ×2 (08:30→17:19)
[2022-04-01] MEDS: ISOSORBIDE DINITRATE 20MG TABLET PO SCH ×2 (08:30→17:19)
[2022-04-01] MEDS: METOPROLOL TARTRATE 25MG TABLET PO SCH (08:31)
[2022-04-01] MEDS: HYDROCHLOROTHIAZIDE 25MG TABLET PO SCH (08:31)
[2022-04-01] MEDS: GABAPENTIN 100MG CAPSULE PO SCH (08:31)
[2022-04-01] MEDS: ASPIRIN 81MG EC TABLET PO SCH (08:31)
[2022-04-01] MEDS: LISINOPRIL 40MG TABLET PO SCH (08:32)
[2022-04-01] MEDS: MONTELUKAST SODIUM 10MG TABLET PO SCH (08:37)
[2022-04-01] MEDS: METHADONE PO SCH (09:47)
[2022-04-01 12:13] VITALS: BP 103/60
[2022-04-01] MEDS ORDERED: ARIPIPRAZOLE 5MG TABLET PO SCH (13:45)
[2022-04-01 15:48] VITALS: BP 123/77
[2022-04-01 19:56] VITALS: BP 133/78
== END 2022-04-01 20:15 | disposition home or self-care (01) | DRG 917 ==
LOC: ER 15:18 → EDBEDREQ 17:33 → 6WST 19:03 → EDBEDREQ 19:06 → CANRESERV 20:19 → ENRESERV 20:19 → CANRESERV 22:09 → ENRESERV 22:09
PROVIDERS: ADMIT Internal Medicine; ATTEND Internal Medicine
PROC: 5A09357 Assistance with Respiratory Ventilation, Less than 24 Consecutive Hours, Continuous Positive Airway Pressure (ICD-10-PCS; principal; 2022-03-31)
DX: T40.3X1A Poisoning by methadone, accidental (unintentional), initial encounter (principal); G92.9 Unspecified toxic encephalopathy; J96.92 Respiratory failure, unspecified with hypercapnia; F33.0 Major depressive disorder, recurrent, mild; I11.0 Hypertensive heart disease with heart failure; I50.9 Heart failure, unspecified; I25.10 Atherosclerotic heart disease of native coronary artery without angina pectoris; E78.00 Pure hypercholesterolemia, unspecified; J44.9 Chronic obstructive pulmonary disease, unspecified; Z20.822 Contact with and (suspected) exposure to COVID-19; G47.33 Obstructive sleep apnea (adult) (pediatric); F25.9 Schizoaffective disorder, unspecified; F19.90 Other psychoactive substance use, unspecified, uncomplicated; F17.200 Nicotine dependence, unspecified, uncomplicated; Z79.899 Other long term (current) drug therapy; Z99.81 Dependence on supplemental oxygen; Z59.02 Unsheltered homelessness; Y92.89 Other specified places as the place of occurrence of the external cause
CPT/HCPCS: 36415; 36600; 71045; 80048; 80053; 80305; 80307; 80320; 80329; 81003; 82375; 82805; 82962; 83880; 84484; 85025; 87426; 93005; 94640; 94660; 97162; 99285; J1650; J7030; J7512; G0480

== ENCOUNTER 2022-04-10 21:48 | Inpatient (IN) | payer MEDICARE, MEDICAID ==
[~2022-04-10] VITALS: Ht 152.4 cm; Wt 88.5 kg
[~2022-04-10 21:48] MED LIST changes: -CYCL10TA21 PO; -GABA-529 PO; -LISI10TA26 PO; -METO-411 PO
[2022-04-10] MEDS ORDERED: ONDANSETRON HCL 4MG/2ML INJ IV NR (23:47)
[2022-04-10] MEDS ORDERED: MORPHINE SULFATE 4 MG/ML CPJ (NOT FOR IM USE) IV NR (23:47)
[2022-04-11 00:40] LABS: BASOPHILS % 0.4 % (0.0-2.0); EOSINOPHILS % 0.8 % (0.0-5.0); HEMATOCRIT. 46.8 % (36.0-48.0); HEMOGLOBIN. 15.5 g/dL (12.0-16.0); LYMPHOCYTES % 23.7 % (20.0-50.0); MEAN CORPUSCULAR HEMOGLOBIN 32.4 pg (28.0-32.0); MEAN CORPUSCULAR VOLUME 97.9 fL (81.0-99.0); MEAN PLATELET VOLUME 7.2 fl (7.4-10.4); MONOCYTES % 7.9 % (2.0-8.0); NEUTROPHILS % 67.2 % (40.0-76.0); PLATELET 267 x1000/uL (130-400); RED BLOOD CELL COUNT 4.77 mill/uL (4.2-5.4); RED CELL DISTRIBUTION WIDTH 16.4 % (11.6-14.6)
[2022-04-11 00:47] LABS: CHLORIDE 95 mEq/L (98-107)
[2022-04-11 00:51] LABS: PARTIAL THROMBOPLASTIN TIME 25.9 sec (23.4-31.0); PROTHROMBIN TIME 10.8 sec (9.6-11.0)
[2022-04-11 04:00] VITALS: BP 98/51
[2022-04-11] MEDS ORDERED: ASPIRIN 81MG EC TABLET PO NR (09:00)
[2022-04-11] MEDS ORDERED: METOPROLOL TARTRATE 25MG TABLET PO SCH ×2 (09:00→21:00)
[2022-04-11] MEDS ORDERED: ENOXAPARIN 30MG/0.3ML SYR SUBCUT SCH (09:00)
[2022-04-11] MEDS: CLOPIDOGREL 75MG TABLET PO SCH (10:07)
[2022-04-11 11:07] VITALS: BP 143/65
[2022-04-11] MEDS ORDERED: ALBUTEROL 6.7GM HFA INHALER INH SCH (12:15)
[2022-04-11] MEDS ORDERED: NALOXONE HCL 0.4MG/ML VIAL IV PRN (12:15)
[2022-04-11] MEDS ORDERED: *PATIENT'S OWN MEDICATION STORAGE XX SCH (12:30)
[2022-04-11] MEDS: METOPROLOL TARTRATE 25MG TABLET PO SCH ×2 (12:50→22:00)
[2022-04-11] MEDS: HYDROCHLOROTHIAZIDE 25MG TABLET PO SCH (12:50)
[2022-04-11] MEDS: MORPHINE SULFATE 2 MG/ML CPJ (NOT FOR IM USE) IV PRN ×2 (12:51→20:26)
[2022-04-11] MEDS ORDERED: ALBUTEROL (0.083%) 2.5MG/3ML NEB HHN PRN (13:00)
[2022-04-11] MEDS ORDERED: IOHEXOL-350 100 ML BOTTLE ONE (13:04)
[2022-04-11] MEDS ORDERED: ENOXAPARIN 30MG/0.3ML SYR SUBCUT NR (14:00)
[2022-04-11] MEDS ORDERED: CLOPIDOGREL 75MG TABLET PO SCH (14:00)
[2022-04-11] MEDS: LISINOPRIL 40MG TABLET PO SCH (14:13)
[2022-04-11] MEDS: PREDNISONE 20MG TABLET PO SCH (16:46)
[2022-04-11] MEDS: ISOSORBIDE DINITRATE 20MG TABLET PO SCH (16:46)
[2022-04-11] MEDS: MONTELUKAST SODIUM 10MG TABLET PO SCH (16:47)
[2022-04-11 20:00] VITALS: BP_SYST 101; BP_SYST 95; BP_DIAS 51; BP_DIAS 52
[2022-04-11] MEDS: ATORVASTATIN CALCIUM 40MG TABLET PO SCH (20:20)
[2022-04-11] MEDS ORDERED: ATORVASTATIN CALCIUM 40MG TABLET PO SCH (21:00)
[2022-04-12] VITALS: BP 91/65
[2022-04-12] MEDS: MORPHINE SULFATE 2 MG/ML CPJ (NOT FOR IM USE) IV PRN ×3 (03:46→20:16)
[2022-04-12 04:00] VITALS: BP 101/59
[2022-04-12] MEDS: PREDNISONE 20MG TABLET PO SCH ×2 (06:06→17:29)
[2022-04-12 06:30] LABS: BASOPHILS % 0.4 % (0.0-2.0); EOSINOPHILS % 0.6 % (0.0-5.0); HEMATOCRIT. 42.3 % (36.0-48.0); HEMOGLOBIN. 14.1 g/dL (12.0-16.0); LYMPHOCYTES % 22.5 % (20.0-50.0); MEAN CORPUSCULAR HEMOGLOBIN 32.7 pg (28.0-32.0); MEAN CORPUSCULAR VOLUME 97.9 fL (81.0-99.0); MEAN PLATELET VOLUME 7.1 fl (7.4-10.4); MONOCYTES % 6.7 % (2.0-8.0); NEUTROPHILS % 69.8 % (40.0-76.0); PLATELET 250 x1000/uL (130-400); RED BLOOD CELL COUNT 4.32 mill/uL (4.2-5.4); RED CELL DISTRIBUTION WIDTH 16.6 % (11.6-14.6)
[2022-04-12 06:47] LABS: CHLORIDE 99 mEq/L (98-107)
[2022-04-12 08:30] VITALS: BP 94/64
[2022-04-12] MEDS: METOPROLOL TARTRATE 25MG TABLET PO SCH ×2 (08:42→20:25)
[2022-04-12] MEDS: ISOSORBIDE DINITRATE 20MG TABLET PO SCH ×2 (08:42→17:30)
[2022-04-12] MEDS: LISINOPRIL 40MG TABLET PO SCH (08:42)
[2022-04-12] MEDS: HYDROCHLOROTHIAZIDE 25MG TABLET PO SCH (08:42)
[2022-04-12] MEDS: METHADONE PO SCH (09:35)
[2022-04-12] MEDS: CLOPIDOGREL 75MG TABLET PO SCH (09:36)
[2022-04-12] MEDS: ASPIRIN 81MG EC TABLET PO SCH (09:36)
[2022-04-12] MEDS ORDERED: ENOXAPARIN 60MG/0.6ML SYR SUBCUT SCH (10:00)
[2022-04-12 12:00] VITALS: BP 107/68
[2022-04-12 16:00] VITALS: BP 118/62
[2022-04-12] MEDS: MONTELUKAST SODIUM 10MG TABLET PO SCH (17:30)
[2022-04-12 20:00] VITALS: BP 104/70
[2022-04-12] MEDS: ATORVASTATIN CALCIUM 40MG TABLET PO SCH (20:14)
[2022-04-12] MEDS: ENOXAPARIN 60MG/0.6ML SYR SUBCUT SCH (20:20)
[2022-04-12] MEDS: ZOLPIDEM TARTRATE 5MG TABLET PO PRN (22:11)
[2022-04-13] VITALS: BP 109/64
[2022-04-13] MEDS: MORPHINE SULFATE 2 MG/ML CPJ (NOT FOR IM USE) IV PRN ×3 (04:13→18:08)
[2022-04-13] MEDS: PREDNISONE 20MG TABLET PO SCH ×2 (05:58→17:14)
[2022-04-13 08:00] VITALS: BP 126/75
[2022-04-13] MEDS: METOPROLOL TARTRATE 25MG TABLET PO SCH ×2 (08:09→21:00)
[2022-04-13] MEDS: ENOXAPARIN 60MG/0.6ML SYR SUBCUT SCH (08:09)
[2022-04-13] MEDS: HYDROCHLOROTHIAZIDE 25MG TABLET PO SCH (08:10)
[2022-04-13] MEDS: ISOSORBIDE DINITRATE 20MG TABLET PO SCH ×2 (08:10→17:14)
[2022-04-13] MEDS: ASPIRIN 81MG EC TABLET PO SCH (08:10)
[2022-04-13] MEDS: LISINOPRIL 40MG TABLET PO SCH (08:11)
[2022-04-13] MEDS: CLOPIDOGREL 75MG TABLET PO SCH (08:12)
[2022-04-13] MEDS: METHADONE PO SCH (09:12)
[2022-04-13 12:00] VITALS: BP 110/65
[2022-04-13 16:00] VITALS: BP 111/68
[2022-04-13] MEDS: MONTELUKAST SODIUM 10MG TABLET PO SCH (17:14)
[2022-04-13 21:14] VITALS: BP 100/60
[2022-04-13] MEDS: ATORVASTATIN CALCIUM 40MG TABLET PO SCH (21:19)
[2022-04-13] MEDS: ZOLPIDEM TARTRATE 5MG TABLET PO PRN (23:16)
[2022-04-14] VITALS (9 sets, daily range): BP systolic 102–129; BP diastolic 52–85
[2022-04-14] MEDS: MORPHINE SULFATE 2 MG/ML CPJ (NOT FOR IM USE) IV PRN ×5 (00:21→21:56)
[2022-04-14 06:12] LABS: BASOPHILS % 0.5 % (0.0-2.0); EOSINOPHILS % 0.5 % (0.0-5.0); HEMATOCRIT. 41.5 % (36.0-48.0); HEMOGLOBIN. 13.7 g/dL (12.0-16.0); LYMPHOCYTES % 27.2 % (20.0-50.0); MEAN CORPUSCULAR HEMOGLOBIN 32.5 pg (28.0-32.0); MEAN CORPUSCULAR VOLUME 98.5 fL (81.0-99.0); MEAN PLATELET VOLUME 7.5 fl (7.4-10.4); NEUTROPHILS % 65.8 % (40.0-76.0); PLATELET 246 x1000/uL (130-400); RED BLOOD CELL COUNT 4.22 mill/uL (4.2-5.4)
[2022-04-14] MEDS: PREDNISONE 20MG TABLET PO SCH ×2 (06:31→17:11)
[2022-04-14 07:49] LABS: CHLORIDE 96 mEq/L (98-107)
[2022-04-14] MEDS: HYDROCHLOROTHIAZIDE 25MG TABLET PO SCH (08:29)
[2022-04-14] MEDS: METOPROLOL TARTRATE 25MG TABLET PO SCH ×2 (08:30→21:55)
[2022-04-14] MEDS: LISINOPRIL 40MG TABLET PO SCH (08:30)
[2022-04-14] MEDS: METHADONE PO SCH (08:54)
[2022-04-14] MEDS: CLOPIDOGREL 75MG TABLET PO SCH (08:56)
[2022-04-14] MEDS: ISOSORBIDE DINITRATE 20MG TABLET PO SCH ×2 (08:56→17:11)
[2022-04-14] MEDS: ASPIRIN 81MG EC TABLET PO SCH (08:56)
[2022-04-14] MEDS ORDERED: IODIXANOL 320MG/ML 100 ML BOTTLE IV ONE (14:18)
[2022-04-14] MEDS ORDERED: LIDOCAINE HCL 1% 50ML VIAL (10MG/ML) ONE (14:19)
[2022-04-14] MEDS ORDERED: HEPARIN 1000 UNITS/ML 10ML ONE (14:19)
[2022-04-14] MEDS ORDERED: MIDAZOLAM HCL 2 MG/2 ML VIAL ONE ×2 (14:48→15:28)
[2022-04-14] MEDS ORDERED: FENTANYL CITRATE/PF 50MCG/ML 2ML VIAL ONE (14:48)
[2022-04-14] MEDS ORDERED: ASPIRIN 325MG EC TABLET PO ONE (16:10)
[2022-04-14] MEDS ORDERED: CLOPIDOGREL 75MG TABLET ONE (16:10)
[2022-04-14] MEDS ORDERED: ACETAMINOPHEN 325MG TABLET PO PRN (16:15)
[2022-04-14] MEDS ORDERED: ATROPINE SULFATE 1MG/10ML SYR IV PRN (16:15)
[2022-04-14] MEDS: MONTELUKAST SODIUM 10MG TABLET PO SCH (17:11)
[2022-04-14] MEDS: ONDANSETRON HCL 4MG/2ML INJ IV PRN (17:12)
[2022-04-14] MEDS: ATORVASTATIN CALCIUM 40MG TABLET PO SCH (21:55)
[2022-04-15] VITALS (9 sets, daily range): BP systolic 115–140; BP diastolic 48–75
[2022-04-15] MEDS: ONDANSETRON HCL 4MG/2ML INJ IV PRN (05:39)
[2022-04-15] MEDS: PREDNISONE 20MG TABLET PO SCH ×2 (05:39→17:11)
[2022-04-15] MEDS: MORPHINE SULFATE 2 MG/ML CPJ (NOT FOR IM USE) IV PRN ×3 (05:40→19:47)
[2022-04-15 06:22] LABS: BASOPHILS % 0.2 % (0.0-2.0); EOSINOPHILS % 0.3 % (0.0-5.0); HEMATOCRIT. 43.1 % (36.0-48.0); HEMOGLOBIN. 14.5 g/dL (12.0-16.0); LYMPHOCYTES % 23.4 % (20.0-50.0); MEAN CORPUSCULAR HEMOGLOBIN 32.9 pg (28.0-32.0); MEAN CORPUSCULAR VOLUME 97.9 fL (81.0-99.0); MEAN PLATELET VOLUME 7.2 fl (7.4-10.4); MONOCYTES % 6.8 % (2.0-8.0); NEUTROPHILS % 69.3 % (40.0-76.0); PLATELET 263 x1000/uL (130-400); RED CELL DISTRIBUTION WIDTH 15.9 % (11.6-14.6)
[2022-04-15 06:37] LABS: CHLORIDE 96 mEq/L (98-107)
[2022-04-15] MEDS: HYDROCHLOROTHIAZIDE 25MG TABLET PO SCH (09:43)
[2022-04-15] MEDS: ASPIRIN 81MG EC TABLET PO SCH (09:43)
[2022-04-15] MEDS: CLOPIDOGREL 75MG TABLET PO SCH (09:44)
[2022-04-15] MEDS: ISOSORBIDE DINITRATE 20MG TABLET PO SCH ×2 (09:44→17:10)
[2022-04-15] MEDS: METOPROLOL TARTRATE 25MG TABLET PO SCH (09:44)
[2022-04-15] MEDS: LISINOPRIL 40MG TABLET PO SCH (09:45)
[2022-04-15] MEDS: METHADONE PO SCH (10:54)
[2022-04-15] MEDS ORDERED: HYDR-4001 MT (12:26)
[2022-04-15] MEDS: MONTELUKAST SODIUM 10MG TABLET PO SCH (17:11)
== END 2022-04-15 21:52 | disposition home health service (06) | DRG 253 ==
LOC: ER 22:23 → 7EST 04-11 02:45 → ENRESERV 04-11 09:15 → 3WST 04-14 16:52
PROVIDERS: ADMIT Internal Medicine; ATTEND Internal Medicine
PROC: 047K3EZ Dilation of Right Femoral Artery with Two Intraluminal Devices, Percutaneous Approach (ICD-10-PCS; principal; 2022-04-14)
PROC: B41FYZZ Fluoroscopy of Right Lower Extremity Arteries using Other Contrast (ICD-10-PCS; 2022-04-14)
DX: I70.211 Atherosclerosis of native arteries of extremities with intermittent claudication, right leg (principal); J96.10 Chronic respiratory failure, unspecified whether with hypoxia or hypercapnia; J44.9 Chronic obstructive pulmonary disease, unspecified; I11.0 Hypertensive heart disease with heart failure; I25.10 Atherosclerotic heart disease of native coronary artery without angina pectoris; G47.33 Obstructive sleep apnea (adult) (pediatric); I50.9 Heart failure, unspecified; E78.00 Pure hypercholesterolemia, unspecified; E78.5 Hyperlipidemia, unspecified; F17.210 Nicotine dependence, cigarettes, uncomplicated; F11.90 Opioid use, unspecified, uncomplicated; Z99.81 Dependence on supplemental oxygen; Z79.899 Other long term (current) drug therapy; I25.2 Old myocardial infarction; Z95.5 Presence of coronary angioplasty implant and graft; Z91.199 Patient's noncompliance with other medical treatment and regimen due to unspecified reason; Z91.14 Patient's other noncompliance with medication regimen
CPT/HCPCS: 36415; 37226; 71045; 72141; 72148; 72191; 73706; 75710; 80048; 80053; 83605; 85025; 86850; 86900; 87426; 93005; 94660; 99285; C1725; C1760; C1769; C1876; C1893; C1894; J1644; J1650; J2250; J2270; J2405; J3010; J3490; J7512; Q9967

== ENCOUNTER 2023-11-21 12:30 | Inpatient (IN) | payer MEDICARE, MEDICAID ==
[~2023-11-21] VITALS: Ht 160 cm; Wt 82.1 kg
[~2023-11-21 12:30] MED LIST changes: -ALBU6.7H15 INH; +ATOR-2 PO; +DULO30CA52 PO; -FLUT1AER4 IH; +FLUT1BLS10 PO; -HYDR25TA MT; -IPRA4AER INH; -ISOS20TA8 PO; -LIP40 PO; -LISI40TA13 PO; -METH10OR PO; +METH10OR11 MT; -METO25TA6 PO; +MONT-39 PO; -MONT10TA21 PO; -P20 MT; -PRAV40TA58 MT; +ZOLP5TAB2 MT
[2023-11-21 12:34] VITALS: O2SAT 95
[2023-11-21] MEDS: ONDANSETRON HCL 4MG/2ML INJ IV STA (12:55)
[2023-11-21 13:26] LABS: HEMATOCRIT. 49.3 % (36.0-48.0); HEMOGLOBIN. 16.5 g/dL (12.0-16.0); MEAN CORPUSCULAR HEMOGLOBIN 32.5 pg (28.0-32.0); MEAN CORPUSCULAR HGB CONC 33.4 g/dL (31.0-37.0); MEAN CORPUSCULAR VOLUME 97.2 fL (81.0-99.0); MEAN PLATELET VOLUME 7.3 fl (7.4-10.4); PLATELET 335 x1000/uL (130-400); RED BLOOD CELL COUNT 5.07 mill/uL (4.2-5.4); RED CELL DISTRIBUTION WIDTH 17.3 % (11.6-14.6); WHITE BLOOD COUNT 14.9 x1000/uL (4.5-11.0)
[2023-11-21 13:27] LABS: DIFFERENTIAL COMMENT 1
[2023-11-21 13:29] LABS: CHLORIDE 102 mEq/L (98-107); POTASSIUM 4.3 mEq/L (3.5-5.1); SODIUM 140 mEq/L (136-145)
[2023-11-21 13:30] LABS: CALCIUM 9.5 mg/dL (8.7-10.4); CARBON DIOXIDE 34 mEq/L (21-32)
[2023-11-21 13:35] LABS: CREATININE 0.6 mg/dL (0.6-1.0); GLUCOSE 133 mg/dL (70-105); UREA NITROGEN BLOOD 15 mg/dL (9-23)
[2023-11-21 13:37] LABS: ALANINE AMINOTRANSFERASE 15 IU/L (10-49); ALBUMIN 4.9 g/dL (3.2-4.8); ASPARTATE AMINOTRANSFERASE 19 IU/L (<34); BILIRUBIN DIRECT 0.4 mg/dL (<=3.0); BILIRUBIN TOTAL 0.9 mg/dL (0.1-1.0)
[2023-11-21 13:38] LABS: PROTEIN TOTAL 7.4 g/dL (6.0-8.3)
[2023-11-21 13:48] LABS: TROPONIN I HIGH SENSITIVITY < 4 ng/L (3.0-34)
[2023-11-21 13:50] LABS: ANISOCYTOSIS 1+; PLATELET ESTIMATE NORMAL
[2023-11-21] MEDS ORDERED: IOHEXOL-350 100 ML BOTTLE ONE (17:25)
[2023-11-21 20:00] VITALS: BP 105/81; PULSE 98; RESP 19; TEMP 97.8
[2023-11-21 21:00] VITALS: BP 105/81; PULSE 98; RESP 18; TEMP 97.8
[2023-11-21] MEDS ORDERED: ZOLPIDEM TARTRATE 5MG TABLET PO PRN (23:15)
[2023-11-21] MEDS: ONDANSETRON HCL 4MG/2ML INJ IV PRN (23:52)
[2023-11-22] VITALS: BP 138/76; PULSE 94; RESP 18; TEMP 99.7
[2023-11-22 03:32] LABS: CLARITY URINE CLEAR (CLEAR); COLOR URINE YELLOW (YELLOW); GLUCOSE URINE NEGATIVE (NEGATIVE); KETONES URINE NEGATIVE (NEGATIVE); LEUKOCYTE ESTERASE URINE NEGATIVE (NEGATIVE); NITRITE URINE NEGATIVE (NEGATIVE); OCCULT BLOOD URINE NEGATIVE (NEGATIVE); PH URINE 7.5 (4.5-8.0); PROTEIN URINE TRACE (NEGATIVE); SPECIFIC GRAVITY URINE 1.053 (1.005-1.030)
[2023-11-22 04:00] VITALS: BP 139/84; PULSE 104; RESP 18; TEMP 101.1
[2023-11-22 04:26] LABS: BACTERIA URINE NONE SEEN; RBC URINE 0-2 /hpf (0-2); SQUAMOUS EPITHELIAL CELL URINE 1+ /lpf (RARE/1+); WBC URINE NONE SEEN /hpf (0-2)
[2023-11-22 05:18] LABS: TROPONIN I HIGH SENSITIVITY < 4 ng/L (3.0-34)
[2023-11-22 08:00] VITALS: BP 128/62; PULSE 93; RESP 17; TEMP 98
[2023-11-22] MEDS: CLOPIDOGREL 75MG TABLET PO SCH (08:49)
[2023-11-22] MEDS: ASPIRIN 81MG TABLET PO SCH (08:49)
[2023-11-22] MEDS: DULOXETINE HCL 30MG DR CAPSULE PO SCH (08:49)
[2023-11-22] MEDS: ENOXAPARIN 40MG/0.4ML SYR SUBCUT SCH (08:50)
[2023-11-22 12:00] VITALS: BP 113/69; PULSE 73; RESP 17; TEMP 97.8
[2023-11-22 16:00] VITALS: BP 130/76; PULSE 78; RESP 19; TEMP 97.5
[2023-11-22 16:20] LABS: TROPONIN I HIGH SENSITIVITY < 4 ng/L (3.0-34)
[2023-11-22] MEDS: MONTELUKAST SODIUM 10MG TABLET PO SCH (16:31)
[2023-11-22 20:00] VITALS: BP 126/77; PULSE 84; RESP 19; TEMP 97.8
[2023-11-22] MEDS: ATORVASTATIN CALCIUM 40MG TABLET PO SCH (21:22)
[2023-11-22] MEDS: METRONIDAZOLE 500MG TABLET PO SCH (22:36)
[2023-11-23] VITALS: BP 125/73; PULSE 76; RESP 19; TEMP 97.3
[2023-11-23 00:35] LABS: TROPONIN I HIGH SENSITIVITY < 4 ng/L (3.0-34)
[2023-11-23] MEDS: CEFTRIAXONE 1GM/50ML 50 ML IV SCH (01:25)
[2023-11-23 04:00] VITALS: BP 132/75; PULSE 78; RESP 20; TEMP 97.5
[2023-11-23 07:04] LABS: BASOPHILS % 0.4 % (0.0-2.0); CARBON DIOXIDE 32 mEq/L (21-32); CHLORIDE 100 mEq/L (98-107); HEMATOCRIT. 42.9 % (36.0-48.0); HEMOGLOBIN. 14.3 g/dL (12.0-16.0); LYMPHOCYTES % 37.8 % (20.0-50.0); MEAN CORPUSCULAR HEMOGLOBIN 32.3 pg (28.0-32.0); MEAN CORPUSCULAR HGB CONC 33.3 g/dL (31.0-37.0); MEAN CORPUSCULAR VOLUME 97.1 fL (81.0-99.0); MEAN PLATELET VOLUME 7.9 fl (7.4-10.4); MONOCYTES % 13.1 % (2.0-8.0); NEUTROPHILS % 47.7 % (40.0-76.0); PLATELET 247 x1000/uL (130-400); POTASSIUM 3.5 mEq/L (3.5-5.1); RED BLOOD CELL COUNT 4.42 mill/uL (4.2-5.4); RED CELL DISTRIBUTION WIDTH 17.7 % (11.6-14.6); SODIUM 138 mEq/L (136-145); WHITE BLOOD COUNT 3.6 x1000/uL (4.5-11.0)
[2023-11-23 07:05] LABS: CALCIUM 8.6 mg/dL (8.7-10.4)
[2023-11-23 07:10] LABS: CREATININE 0.5 mg/dL (0.6-1.0); GLUCOSE 72 mg/dL (70-105); UREA NITROGEN BLOOD 14 mg/dL (9-23)
[2023-11-23 07:19] LABS: TROPONIN I HIGH SENSITIVITY < 4 ng/L (3.0-34)
[2023-11-23 08:00] VITALS: BP 138/80; PULSE 76; RESP 20; TEMP 98
[2023-11-23] MEDS: FAMOTIDINE 20MG/2ML VIAL IV SCH (08:07)
[2023-11-23 12:00] VITALS: BP 152/77; PULSE 61; RESP 14; TEMP 97
[2023-11-23 16:00] VITALS: BP 136/73; PULSE 84; RESP 17; TEMP 97.4
[2023-11-23] MEDS: METOCLOPRAMIDE HCL 10MG/2ML VIAL IV NR (16:16)
[2023-11-23 16:51] LABS: TROPONIN I HIGH SENSITIVITY < 4 ng/L (3.0-34)
== END 2023-11-23 19:00 | disposition home or self-care (01) | DRG 392 ==
LOC: ER 12:30 → 7EST 16:38 → EDBEDREQTM 16:56 → EDBEDREQ 16:56
PROVIDERS: ADMIT Internal Medicine; ATTEND Internal Medicine
DX: A09 Infectious gastroenteritis and colitis, unspecified (principal); I50.32 Chronic diastolic (congestive) heart failure; N39.0 Urinary tract infection, site not specified; I11.0 Hypertensive heart disease with heart failure; J44.9 Chronic obstructive pulmonary disease, unspecified; Z99.81 Dependence on supplemental oxygen; I73.9 Peripheral vascular disease, unspecified; I25.10 Atherosclerotic heart disease of native coronary artery without angina pectoris; M48.061 Spinal stenosis, lumbar region without neurogenic claudication; D72.829 Elevated white blood cell count, unspecified; Z95.5 Presence of coronary angioplasty implant and graft
CPT/HCPCS: 36415; 71045; 74177; 80048; 80076; 81003; 83880; 84484; 85025; 87804; 93005; 99285; J0696; J1650; J2405; J2765; J3490; Q9967